=== PATIENT | female | born 1960 | race African-American/Black ===

== ENCOUNTER 2017-05-31 12:00 | Inpatient (IN) | payer OTHER ==
[~2017-05-31] VITALS: Ht 157.5 cm; Wt 80.8 kg
[2017-05-31] VITALS (8 sets, daily range): BP systolic 102–113; BP diastolic 60–69
--- NOTE | ~2017-05-31 | H ---
[facility] [place] [address] HISTORY AND PHYSICAL Name: BRAYAN METZGER Room #: 241-P ADM IN M.R.#: [id number] Admission: 05/31/17 Attend Phys: Lakeisha Diamond Discharge: Date of : 64 Report #: [id number] THIS REPORT FOR: //name// CC: Misael Georges DATE OF SERVICE: 05/31/2017 CHIEF COMPLAINT: Low O2 sats. HOSPITAL COURSE: The patient is a 56-year-old female from [facility] ventilator unit who was sent to the ER with low O2 sats, low tidal volume, worsening level of consciousness and abnormal lab work. It has been reported that her BUN and creatinine have been elevated. There was a report of fever, but it is not documented as to there was some fever reported and low O2 sats with some tachycardia. There was a report there blood sugar was 124 en route, her history is difficult to obtain as there are really no records available other than reviewing the electronic record. She apparently became very ill and has been in different hospital facilities for 4 months including a facility in [place] and at some point developed chronic respiratory failure and ventilator dependence. She has a tracheostomy tube and PEG tube. She transferred to [facility] ventilator unit a few weeks ago. Her underlying injury is that of quadriparesis, but the exact nature and full details are completely unknown and unobtainable. PAST MEDICAL HISTORY: Quadriplegia, chronic respiratory failure, chronic kidney disease. She has multiple wounds, ventilator dependence. PAST SURGICAL HISTORY: Unknown. FAMILY HISTORY: Unknown. SOCIAL HISTORY: Unknown. ALLERGIES: HEPARIN. MEDICATIONS: Albuterol, fentanyl patch, Celexa, Ativan, Pepcid, Reglan, Levemir. REVIEW OF SYSTEMS: She is unable to give review. PHYSICAL EXAMINATION: VITAL SIGNS: Pulse 84, respirations 19, blood pressure 102/60, O2 sat 100% on the ventilator. GENERAL: She is marginally arousable, no purposeful eye contact or interaction. HEAD AND NECK: Unremarkable. LUNGS: Clear. [facility] [address] [place] [address] HISTORY AND PHYSICAL Name: BRAYAN METZGER Cash Room #: 241-P [facility] IN ..#: [id number] Admission: 05/31/17 Attend Phys: Lakeisha Diamond Discharge: Date of : 64 Report #: [id number] HEART: Regular. ABDOMEN: Soft, normoactive bowel sounds. PEG tube. EXTREMITIES: No cyanosis, clubbing, may be some 1+ edema. SKIN: On her sacrum, she has a large stage 4, probably 6 inches in diameter with several inches of depth. There is another stage 4 on the posterior left upper thigh. There are some other stage 3 excoriated areas about the coccyx, sacrum, gluteus and upper thighs. NEUROLOGIC: No purposeful movements throughout. LABORATORY REVIEW: PH 7.1, pCO2 50, pO2 of 107 on the ventilator at 40% FiO2. White count 21, hemoglobin 7.6, potassium 6.9, BUN 190, creatinine 3.4. ASSESSMENT: 1. Acute renal failure. 2. Sepsis. 3. Metabolic acidosis due to the above. 4. Stage 4 sacral wound. 5. Chronic respiratory failure. 6. Ventilator dependence. 7. Chronic quadriplegia. 8. Anemia of chronic disease. 9. Severe protein-calorie malnutrition. PLAN: For now, we will provide supportive measures only. DNR status entirely is completely appropriate in this clinical setting. Dr. Alvarez has had a detailed conversation per his note with family regarding her current condition and prognosis. This appears to be a terminal illness. She is not a candidate for hemodialysis nor any candidate for ventilator weaning. Really at this point, it is only supportive measures, but I suspect renal failure and sepsis to progress and this could be a terminal event. I understand that her family is en route to the hospital and we will try to speak with them once available. This is extremely poor clinical setting and poor prognosis and again appears to be a terminal event. <ELECTRONICALLY SIGNED> By: John Sparks MD 06/01/17 1021 1727 1822 John Sparks MD /nt
--- NOTE | ~2017-05-31 | EKG ---
[address] [address] ELECTROCARDIOGRAM REPORT Name: BRAYAN METZGER Room #: 170-8 ADM IN M.R.#: [id number] Admission: 05/31/17 Attend Phys: Lakeisha Diamond Discharge: Date of : 64 Report #: [id number] THIS REPORT FOR: //name// [facility] ED Test Date: 2017-05-31 Test Time: 12:12:32 Pat Name: BRAYAN METZGER Department: Room: 170 Gender: F Nursing Education Specialist: [facility] : 1960 Requested By: Paulina Davis Order Number: [id number] MD: Migel Osuna Measurements Intervals [place] Rate: 85 P: 67 AR: 143 QRS: 44 QRSD: 102 T: 45 QT: 385 QTc: 458 Interpretive Statements Sinus rhythm No significant abnormality No previous ECG available for comparison Electronically Signed On 05-31-2017 17:19:31 CDT by Migel Osuna [email or web address] <ELECTRONICALLY SIGNED> By: Migel Osuna MD, [facility] 05/31/17 1719 1212 1212 Migel Osuna MD, FACC /EPI
--- NOTE | ~2017-05-31 | HC ---
[facility] [place] [address] CONSULTATION Name: BRAYAN METZGER Room #: 241-P [facility] IN M.R.#: [id number] Admission: 05/31/17 Attend Phys: Lakeisha Diamond Discharge: 06/01/17 Date of : 64 Report #: [id number] THIS REPORT FOR: //name// CC: Misael Sparks DATE OF SERVICE: 06/01/2017 REFERRING PROVIDER: John Sparks. REASON FOR CONSULTATION: Respiratory failure. HISTORY OF PRESENT ILLNESS: I was called this afternoon to evaluate the patient. History will be brief, a 56-year-old woman, transferred in from [facility] [place], from the chronic ventilator facility. The patient apparently had quadriplegia, perhaps related to a back surgery, also had some abdominal wound with this that has healed with Steri-Strips. The patient is unable to give any history as she is on mechanical ventilatory support with a tracheostomy in place, unable to wean from the ventilator. Transferred here for further evaluation of acute renal failure and subsequently determined not to be a dialysis candidate. According to the records available, the patient is to transfer back to [facility] with possible withdrawal of care. Currently resting comfortably. Peak pressures on mechanical ventilatory support in the mid 20s, tidal volume of 400, respiratory rate 20, and a PEEP of 7. ALLERGIES: HEPARIN. PAST MEDICAL HISTORY: 1. History of quadriplegia. 2. History of acute on chronic renal insufficiency. 3. Chronic respiratory failure. OUTPATIENT MEDICATIONS: 1. Fentanyl patch. 2. Albuterol. 3. Tylenol. SOCIAL HISTORY: Unobtainable due to current status. FAMILY HISTORY: Unobtainable due to current status. REVIEW OF SYSTEMS: Otherwise, unobtainable due to current status. PHYSICAL EXAMINATION: VITAL SIGNS: The patient is afebrile, pulse 80s, respiratory rate 20, blood [facility] [address] [place] [address] CONSULTATION Name: BRAYAN METZGER Room #: [address] [place] [address]#: [id number] Admission: 05/31/17 Attend Phys: Lakeisha Diamond Discharge: 06/01/17 Date of : 64 Report #: [id number] pressure 107/69, oxygen saturation 100% on ventilator settings of 40% FiO2. GENERAL: This is a middle-aged black female, arousable, but not interactive. ENT: With tracheostomy tube in place. No surrounding erythema. LUNGS: Coarse with basilar inspiratory crackles. CARDIOVASCULAR: Heart regular. No murmurs noted. ABDOMEN: Soft, J-tube in place with Steri-Strips over a healed surgical wound noted. EXTREMITIES: Reveal contractures with only trace edema. LABORATORY DATA: Chest x-ray suggests a right lower lobe infiltrative process, unclear how much is infiltrate or effusion, whether it is chronic or acute. Tracheostomy tube in good position. White blood cell count 22,000, hemoglobin 8, hematocrit 24, platelet count 403. Sodium 131, potassium 6.9, chloride 97, bicarbonate 16, BUN 189, creatinine 3.4, glucose 119, AST 46, ALT 24, alkaline phosphatase 148. Arterial blood gas on those settings revealed pH 7.11, pCO2 of 50, pO2 of 108, bicarbonate 16. This was yesterday afternoon, no followup blood gas since that time. IMPRESSION: 1. Acute renal insufficiency. 2. Probable right lung pneumonia. 3. Anemia. 4. Chronic respiratory failure. 5. Metabolic and respiratory acidosis. 6. Quadriplegia. PLANS: For comfort care noted. We will not offer any further interventions at this time. The patient does not appear uncomfortable at present, appears to be reasonably restful. We are available as needed. Thank you for requesting our suggestions. By: 1600 1109 Dylon Bosch MD /nt
[2017-05-31 12:38] LABS: ABG SAMPLE TYPE ARTERIAL; BE(vivo) -14.7 mmol/L (-2 to +3); HCO3 15.3 mmol/L (22.0-26.0); LACTATE 1.59 mmol/L (0.5-2.0); O2(CT) 12.9 mL/dL (15.0-23.0); O2Hb 95.4 % (92.0-98.0); PCO2 56.9 mmHg (35.0-45.0); PO2 104.2 mmHg (80.0-100.0); sO2 94.9 % (92.0-98.0); tCO2 17.1 mmol/L (24.0-30.0)
[2017-05-31 12:39] LABS: STICK SITE L.RADIAL; pH 7.048 (7.360-7.450)
[2017-05-31 12:40] LABS: FIO2 40 %; TIDAL VOLUME 400 ml
[2017-05-31] MEDS ORDERED: CELEXA20 MG PER TUBE (12:43)
[2017-05-31] MEDS ORDERED: PEPCID20 MG PER TUBE (12:43)
[2017-05-31] MEDS ORDERED: REGLAN 10 MG TA10 MG PER TUBE (12:48)
[2017-05-31 13:12] LABS: HEMATOCRIT 23.8 % (37.0-47.0); HEMOGLOBIN 7.6 gm/dL (12.0-15.0); MCH 27.6 pg (26.0-34.0); MCHC 31.8 g/dL (28.0-37.0); MCV 86.7 fL (80.0-100.0); PLATELET COUNT 403 thou/uL (150-400); RBC 2.74 mil/uL (4.20-5.00); RDW 17.9 % (10.5-14.5); WBC 21.6 thou/uL (4.0-11.0)
[2017-05-31 13:13] LABS: MANUAL DIFF YES
[2017-05-31 13:21] LABS: ANION GAP 18 mmol/L (7-16); BUN 189 mg/dL (7-18); CALCIUM 9.3 mg/dL (8.5-10.1); CHLORIDE 97 mmol/L (98-107); CO2 16 mmol/L (21-32); CREATININE 3.4 mg/dL (0.6-1.0); GLUCOSE 119 mg/dL (74-106); SODIUM 131 mmol/L (136-145)
[2017-05-31 13:27] LABS: ALBUMIN 1.9 g/dL (3.4-5.0); ALKALINE PHOSPHATASE 148 U/L (46-116); DIRECT BILIRUBIN 0.1 mg/dL (<0.1-0.3); SGOT 46 U/L (15-37); SGPT 24 U/L (30-65); TOTAL BILIRUBIN 0.4 mg/dL (<0.1-1.0); TOTAL PROTEIN 7.1 g/dL (6.4-8.2); TROPONIN-I < 0.04 ng/mL (<0.04-0.07)
[2017-05-31 13:29] LABS: POTASSIUM 6.9 mmol/L (3.5-5.1)
[2017-05-31] MEDS ORDERED: DURAGESIC1 EAC2 TOP (13:51)
[2017-05-31] MEDS ORDERED: LEVEMIR SUBQ (13:52)
[2017-05-31] MEDS ORDERED: ALBUTEROL2.5 MG/31 INH (13:52)
[2017-05-31] MEDS ORDERED: ATIVAN1 M1 PER TUBE (13:53)
[2017-05-31] MEDS ORDERED: MAPAP160 MG/51 PER TUBE (13:54)
[2017-05-31 14:04] LABS: ABSOLUTE NEUTROPHILS 19.7 thou/uL (1.4-8.2); ANISOCYTOSIS 1+; NUCLEATED RBCS 1 /100WBC; PLATELET ESTIMATE INCREASED; TOTAL CELL COUNT 100
[2017-05-31 14:48] LABS: ABG SAMPLE TYPE ARTERIAL; BE(vivo) -13.1 mmol/L (-2 to +3); HCO3 15.6 mmol/L (22.0-26.0); LACTATE 1.62 mmol/L (0.5-2.0); O2(CT) 12.2 mL/dL (15.0-23.0); PCO2 49.9 mmHg (35.0-45.0); PO2 107.2 mmHg (80.0-100.0); tCO2 17.2 mmol/L (24.0-30.0)
[2017-05-31 14:49] LABS: STICK SITE L.RADIAL; pH 7.114 (7.360-7.450)
[2017-05-31 14:50] LABS: TIDAL VOLUME 400 ml
[2017-06-01] VITALS (22 sets, daily range): BP systolic 42–122; BP diastolic 23–94
[2017-06-01] MEDS ORDERED: DURAGESIC1 EAC2 TOP (13:10)
[2017-06-01] MEDS ORDERED: MSL20MG/ML PO (13:11)
[2017-06-01] MEDS ORDERED: LORAZEPAM 22 MG/1 ML SUBLING (13:11)
== END 2017-06-01 21:05 | DRG 871 ==
LOC: ER 12:00 → ICU 15:16 → EROBS 15:16 → ICU 18:14
PROVIDERS: Emergency Medicine
DX: A41.9 Sepsis, unspecified organism (principal); J18.9 Pneumonia, unspecified organism; G82.50 Quadriplegia, unspecified; J96.90 Respiratory failure, unspecified, unspecified whether with hypoxia or hypercapnia; L89.154 Pressure ulcer of sacral region, stage 4; E43 Unspecified severe protein-calorie malnutrition; E87.4 Mixed disorder of acid-base balance; N17.9 Acute kidney failure, unspecified; Z99.11 Dependence on respirator [ventilator] status; Y95 Nosocomial condition; N18.9 Chronic kidney disease, unspecified; E87.5 Hyperkalemia; Z66 Do not resuscitate; D63.8 Anemia in other chronic diseases classified elsewhere; E86.0 Dehydration; Z86.73 Personal history of transient ischemic attack (TIA), and cerebral infarction without residual deficits; Z68.32 Body mass index [BMI] 32.0-32.9, adult; Z93.0 Tracheostomy status; Z88.8 Allergy status to other drugs, medicaments and biological substances
CPT/HCPCS: 10078